=== PATIENT | male | born 1960 | race Caucasian/White ===

== ENCOUNTER 2021-06-11 11:45 | Emergency (ER) | payer MEDICARE, OTHER ==
[2021-06-11 12:50] LABS: HEMOGLOBIN 15.9 gm/dl (14.0-17.5); RED BLOOD COUNT 5.56 M/UL (4.20-5.50); WHITE BLOOD COUNT 5.7 K/UL (4.5-11.0)
[2021-06-11 13:17] LABS: BUN/CREATININE RATIO 29 (0-10)
== END 2021-06-11 14:40 | disposition home or self-care (01) ==
LOC: ER1 11:45
PROVIDERS: Nurse Practitioner
DX: U07.1 COVID-19 (principal); F17.210 Nicotine dependence, cigarettes, uncomplicated; J44.9 Chronic obstructive pulmonary disease, unspecified; Z86.73 Personal history of transient ischemic attack (TIA), and cerebral infarction without residual deficits; I10 Essential (primary) hypertension; Z79.899 Other long term (current) drug therapy
CPT/HCPCS: 0240U; 36600; 71045; 80048; 81001; 82550; 82553; 82803; 83605; 83874; 83880; 84484; 85025; 87040; 93005; 94664; 96374; 99284; J2930

== ENCOUNTER 2021-06-13 12:12 | Emergency (ER) | payer MEDICARE | END 2021-06-13 16:23 | disposition home or self-care (01) | LOC: ER1 12:12 | DX: U07.1 COVID-19 (principal); I10 Essential (primary) hypertension; F17.200 Nicotine dependence, unspecified, uncomplicated | CPT/HCPCS: 99285 ==

== ENCOUNTER 2021-06-17 10:01 | Observation (INO) | payer MEDICARE ==
[~2021-06-17] VITALS: Ht 180.3 cm; Wt 108.9 kg
[2021-06-17 10:59] LABS: HEMOGLOBIN 16.6 gm/dl (14.0-17.5); RED BLOOD COUNT 5.55 M/UL (4.20-5.50); WHITE BLOOD COUNT 8.9 K/UL (4.5-11.0)
[2021-06-17 11:33] LABS: BUN/CREATININE RATIO 42 (0-10)
[2021-06-17] MEDS ORDERED: MIRTAZAPINE30 MG PO (13:30)
[2021-06-17] MEDS ORDERED: HYDROXYZINE HCL25 MG PO (13:30)
[2021-06-17] MEDS ORDERED: LISINOPRIL-HCT1 EAC1 PO (13:30)
[2021-06-17] MEDS ORDERED: IMITREX100 MG PO (13:31)
[2021-06-17] MEDS ORDERED: TOPIRAMATE25 MG PO (13:31)
[2021-06-17] MEDS ORDERED: MULTIVITAMIN1 EACH PO (13:53)
[2021-06-17] MEDS ORDERED: FISH OIL 1,0001 EACH PO (13:54)
[2021-06-17] MEDS ORDERED: METOPROLOL TART25 MG PO (20:24)
[2021-06-17] MEDS ORDERED: FLOMAX 0.4 MG0.4 MG PO (20:25)
[2021-06-17] MEDS ORDERED: SYMBICORT 80-41 INHA INH (20:26)
[2021-06-18 07:05] LABS: HEMOGLOBIN 14.7 gm/dl (14.0-17.5); RED BLOOD COUNT 5.14 M/UL (4.20-5.50)
[2021-06-18 07:09] LABS: WHITE BLOOD COUNT 3.9 K/UL (4.5-11.0)
--- NOTE | 2021-06-18 12:15 | NUR ---
PATIENT O2 SAT STAYED 92% OR ABOVE WHILE AMBULATING IN ROOM.
== END 2021-06-18 13:07 | disposition home or self-care (01) ==
LOC: ER1 10:01 → CDU 12:20 → M/S 21:17
PROVIDERS: Emergency Medicine; Physician Assistant Medical; ADMIT Internal Medicine Infectious Disease
DX: U07.1 COVID-19 (principal); J12.82 Pneumonia due to coronavirus disease 2019; N17.9 Acute kidney failure, unspecified; R06.82 Tachypnea, not elsewhere classified; J44.9 Chronic obstructive pulmonary disease, unspecified; I10 Essential (primary) hypertension; J45.909 Unspecified asthma, uncomplicated; Z72.0 Tobacco use; Z90.49 Acquired absence of other specified parts of digestive tract
CPT/HCPCS: 36415; 36600; 71045; 80048; 80053; 82550; 82553; 82803; 83735; 83874; 83880; 84484; 85025; 85027; 85379; 93005; 94640; 94664; 94760; G0378; J1100; J1650; U0002